=== PATIENT | female | born 1960 | race Caucasian/White ===

== ENCOUNTER 2020-06-11 20:42 | Emergency (ER) | payer OTHER ==
--- NOTE | 2020-06-11 21:06 | EDPHYS ---
Physician Documentation [facility] Name: Nemesio Merino Age: 60 yrs Sex: Female : 1960 Arrival Date: 06/11/2020 Time: 20:42 Bed 27 Private MD: ED Physician Paul Bean HPI: 06/11 20:58 This 60 yrs old Female presents to ER via Ambulatory with complaints of Eye rn Swelling - Forehead. 20:58 The patient is experiencing. rn 20:58 The patient presents with cellulitis of the left eye, the patient presents with a rn swollen area of the left eye. Description: erythematous, swollen, warm. Onset: The symptoms/episode began/occurred 1 week(s) ago. Possible cause(s): unknown. Associated signs and symptoms: Pertinent positives: erythema, swelling. Modifying factors: the symptoms are alleviated by nothing, the symptoms are aggravated by touching. Severity of symptoms: At their worst the symptoms were moderate, in the emergency department the symptoms are unchanged. The patient has not experienced similar symptoms in the past. Reports 1 week of left periorbital swelling and pain, has cats but not sure if scratched, seen at [facility] 1 week ago, given amoxicillin and not helping. No pain to eyeball itself or painful EOM. + clear drainage from left eye. No fever. Reports swelling and pain to forehead as well. . Historical: - Allergies: 20:49 No Known Allergies; sg - Immunization history:: Adult Immunizations up to date. - Social history:: Smoking status: Patient reports the use of cigarette tobacco products. - Family history:: not pertinent. - Hospitalizations: : No recent hospitalization is reported. ROS: 20:58 Constitutional: Negative for fever, chills, and weight loss, Eyes: + swelling and pain rn around left eye ENT: Negative for injury, pain, and discharge, Neck: Negative for injury, pain, and swelling, Cardiovascular: Negative for chest pain, palpitations, and edema, Respiratory: Negative for shortness of breath, cough, wheezing, and pleuritic chest pain, Abdomen/GI: Negative for abdominal pain, nausea, vomiting, diarrhea, and constipation, MS/Extremity: Negative for injury and deformity, Skin: + redness and pain around left eye Neuro: Negative for headache, weakness, numbness, tingling, and seizure. Exam: 20:58 Constitutional: This is a well developed, well nourished patient who is awake, alert, rn and in no acute distress. Head/Face: Normocephalic, atraumatic. Eyes: Pupils equal round and reactive to light, extra-ocular motions intact. No pain with EOM. + left periorbital edema and redness, no purulence, no hyphema, no pus in anterior chamber. No fluctuance. Vital Signs: 20:49 BP 132 / 77; Pulse 77; Resp 16; Pulse Ox 96% on R/A; Pain 0/10; sg 21:22 BP 147 / 67; Pulse 55; Resp 16; Temp 98.8(O); Pulse Ox 100% on R/A; jb4 MDM: 20:51 Patient medically screened. rn 20:58 Differential diagnosis: cellulitis. Data reviewed: vital signs, nurses notes, and as a rn result, I will discharge patient. Counseling: I had a detailed discussion with the patient and/or guardian regarding: the historical points, exam findings, and any diagnostic results supporting the discharge/admit diagnosis, the need for outpatient follow up, to return to the emergency department if symptoms worsen or persist or if there are any questions or concerns that arise at home. Special discussion: I discussed with the patient/guardian in detail that at this point there is no indication for admission to the hospital. It is understood, however, that if the symptoms persist or worsen the patient needs to return immediately for re-evaluation. Administered Medications: 21:15 Drug: Bactrim (160 mg-800 mg (DS) 1 tablet Route: PO; jb4 21:39 Follow up: Response: No adverse reaction jb4 21:19 Drug: Clindamycin 600 mg Route: IM; Site: left gluteus; jb4 21:39 Follow up: Response: No adverse reaction jb4 21:19 Drug: Decadron 10 mg Route: IM; Site: left deltoid; jb4 21:39 Follow up: Response: No adverse reaction jb4 Disposition: 06/11/20 21:05 Discharged to Home. Impression: Periorbital cellulitis. - Condition is Stable. - Discharge Instructions: Preseptal Cellulitis, Adult. - Prescriptions for Clindamycin HCl 300 mg Oral Capsule - take 1 capsule by ORAL route every 6 hours for 10 days; 40 capsule. Bactrim DS 800- 160 mg Oral Tablet - take 1 tablet by ORAL route every 12 hours for 10 days; 20 tablet. - Medication Reconciliation Form, Thank You Letter, Antibiotic Education, Prescription Opioid Use form. - Follow up: Private Physician; When: As needed; Reason: Recheck today's complaints, Re-evaluation by your physician. - Problem is an ongoing problem. - Symptoms are unchanged. Signatures: Jd Chavez RN RN Paul Bean MD MD rn Bryson, James, RN RN jb4 Corrections: (The following items were deleted from the chart) 21:39 21:05 06/11/2020 21:05 Discharged to Home. Impression: Periorbital cellulitis. jb4 Condition is Stable. Forms are Medication Reconciliation Form, Thank You Letter, Antibiotic Education, Prescription Opioid Use. Follow up: Private Physician; When: As needed; Reason: Recheck today's complaints, Re-evaluation by your physician. Problem is an ongoing problem. Symptoms are unchanged. rn
--- NOTE | 2020-06-11 21:06 | ER ---
Nurse's Notes [facility] Name: Nemesio Merino Age: 60 yrs Sex: Female : 1960 Arrival Date: 06/11/2020 Time: 20:42 Bed 27 Private MD: Diagnosis: Periorbital cellulitis Presentation: 06/11 20:47 Chief complaint: Patient states: Swelling to forehead and left side of face, eye sg swelling. pt reports swelling just happened, no injury/trauma, pt denies any changes to detergent/soaps, no new medications. Coronavirus screen: Client denies travel out of the [place] in the last 14 days. At this time, the client does not indicate any symptoms associated with coronavirus-19. The client reports previous COVID testing was negative. Ebola Screen: Patient negative for fever greater than or equal to 101.5 degrees Fahrenheit, and additional compatible Ebola Virus Disease symptoms Patient denies exposure to infectious person. Patient denies travel to an Ebola-affected area in the 21 days before illness onset. No symptoms or risks identified at this time. Initial Sepsis Screen: Does the patient meet any 2 criteria? No. Patient's initial sepsis screen is negative. Does the patient have a suspected source of infection? No. Patient's initial sepsis screen is negative. Risk Assessment: Do you want to hurt yourself or someone else? Patient reports no desire to harm self or others. Onset of symptoms was June 10, 2020. Care prior to arrival: None. Transition of care: patient was not received from another setting of care. 20:47 Method Of Arrival: Ambulatory sg 20:47 Acuity: JOHN 3 sg Historical: - Allergies: 20:49 No Known Allergies; sg - Immunization history:: Adult Immunizations up to date. - Social history:: Smoking status: Patient reports the use of cigarette tobacco products. - Family history:: not pertinent. - Hospitalizations: : No recent hospitalization is reported. Screenin:22 Abuse screen: Denies threats or abuse. Nutritional screening: No deficits noted. jb4 Tuberculosis screening: No symptoms or risk factors identified. Fall Risk None identified. Assessment: 21:22 Reassessment: PT on 15 minute shot time. General: Appears in no apparent distress. jb4 uncomfortable. Pain: Complains of pain in left eye Pain does not radiate. Pain currently is 6 out of 10 on a pain scale. Quality of pain is described as throbbing. Neuro: Level of Consciousness is awake, alert, obeys commands, Oriented to person, place, time, situation. Cardiovascular: Patient's skin is warm and dry. Respiratory: Airway is patent Respiratory effort is even, unlabored, Respiratory pattern is regular, symmetrical. GI: No signs and/or symptoms were reported involving the gastrointestinal system. : No signs and/or symptoms were reported regarding the genitourinary system. EENT: No signs and/or symptoms were reported regarding the EENT system. Derm: Skin is intact, Skin is pink, warm \T\ dry. Musculoskeletal: Circulation, motion, and sensation intact. Range of motion:. Vital Signs: 20:49 BP 132 / 77; Pulse 77; Resp 16; Pulse Ox 96% on R/A; Pain 0/10; sg 21:22 BP 147 / 67; Pulse 55; Resp 16; Temp 98.8(O); Pulse Ox 100% on R/A; jb4 ED Course: 20:42 Patient arrived in ED. cl3 20:48 Triage completed. sg 20:48 Arm band placed on. sg 20:51 Earnest Maguire, RN is Primary Nurse. jb4 20:51 Paul Bean MD is Attending Physician. rn 21:22 Patient has correct armband on for positive identification. Bed in low position. Call jb4 light in reach. Side rails up X 1. Pulse ox on. NIBP on. 21:22 No provider procedures requiring assistance completed. Patient did not have IV access jb4 during this emergency room visit. Administered Medications: 21:15 Drug: Bactrim (160 mg-800 mg (DS) 1 tablet Route: PO; jb4 21:39 Follow up: Response: No adverse reaction jb4 21:19 Drug: Clindamycin 600 mg Route: IM; Site: left gluteus; jb4 21:39 Follow up: Response: No adverse reaction jb4 21:19 Drug: Decadron 10 mg Route: IM; Site: left deltoid; jb4 21:39 Follow up: Response: No adverse reaction jb4 Outcome: 21:05 Discharge ordered by . rn 21:38 Discharged to home jb4 21:39 Discharged to home ambulatory. jb4 21:39 Condition: stable 21:39 Discharge instructions given to patient, Instructed on discharge instructions, follow up and referral plans. medication usage, Demonstrated understanding of instructions, follow-up care, medications, Prescriptions given X 2. 21:39 Patient left the ED. jb4 Signatures: Jd Chavez RN RN sg Nieto, Roman, MD MD rn Bryson, James, RN RN jb4 Roro Kramer cl3
[2020-06-11] MEDS ORDERED: dexAMETHasone 10 MG/ML VIAL ONE (21:24)
[2020-06-11] MEDS ORDERED: CLINDAMYCIN IV 150 MG/ML (4 mL) VIAL ONE (21:24)
[2020-06-11] MEDS ORDERED: SMZ./TMP. 800/160 MG TABLET ONE (21:24)
[2020-06-16 22:04] VITALS: BP 147/67; TEMP 98.8; O2SAT 100
== END 2020-06-11 21:39 | disposition home or self-care (01) ==
LOC: ER 20:42
DX: L03.213 Periorbital cellulitis (principal); Z72.0 Tobacco use
CPT/HCPCS: 96372; 99283; J1100; S0077

== ENCOUNTER 2020-07-03 21:12 | Emergency (ER) | payer OTHER ==
[2020-07-03 22:09] LABS: Absolute Lymphocytes (CBC) 2.2 K/uL (0.7-4.9); Basophils % 0.7 % (0-1.3); Hematocrit 39.9 % (36.0-45.0); MPV 9.4 fL (7.6-11.3); RBC Red Blood Cell Count 4.11 M/uL (3.86-4.86)
[2020-07-03] MEDS ORDERED: NA CHLORIDE 0.9% 1,000 ML ONE (22:14)
[2020-07-03] MEDS ORDERED: MORPHINE 4 MG/ML SYR ONE (22:14)
[2020-07-03] MEDS ORDERED: ONDANSETRON 4 MG/2 ML VIAL ONE (22:14)
[2020-07-03 22:26] LABS: Protime INR 1.06
[2020-07-03 22:29] LABS: ALT/SGPT 70 U/L (12-78); AST/SGOT 67 U/L (15-37); Albumin 3.6 g/dL (3.4-5.0); Alkaline Phosphatase 71 U/L (45-117); BUN Blood Urea Nitrogen 7 mg/dL (7-18); Bicarbonate 26 mmol/L (21-32); Bilirubin Direct < 0.1 mg/dL (0-0.2); Bilirubin Total 0.3 mg/dL (0.2-1.0); Glucose Level 87 mg/dL (74-106); Magnesium 2.2 mg/dL (1.8-2.4); NT PRO-BNP 527 pg/mL (<125); Potassium 3.2 mmol/L (3.5-5.1); Protein, Total 8.2 g/dL (6.4-8.2); Sodium Level 141 mmol/L (136-145); Troponin (Emerg Dept Use Only) < 0.02 ng/mL (0.0-0.045)
[2020-07-03] MEDS ORDERED: POTASSIUM CL SA 10 MEQ TAB PO ONE (22:55)
[2020-07-03 23:24] LABS: SARS-COV-2 RT PCR NEGATIVE (NEGATIVE)
[2020-07-04] MEDS ORDERED: ACYCLOVIR 400 MG TABLET ONE (01:24)
--- NOTE | 2020-07-04 01:25 | ER ---
Nurse's Notes [facility] Name: Nemesio Merino Age: 60 yrs Sex: Female : 1960 Arrival Date: 07/03/2020 Time: 21:17 Bed 4 Private MD: Yoni Glass Diagnosis: Chest pain. Periorbital swelling left eye. Possible herpes zoster Presentation: 07/03 21:30 Chief complaint: Patient states: I have this right side chest pain going to my back rr5 when I breath it gets worse started 6pm tonight. 21:30 Coronavirus screen: Client denies travel out of the [place] in the last 14 days. cough rr5 unrelated to allergies, difficulty breathing, shortness of breath, Client presents with at least one sign or symptom that may indicate coronavirus-19. Standard/surgical mask placed on the client. Provider contacted for isolation considerations. The client reports previous COVID testing was negative. Date of collection: June 11, 2020. Ebola Screen: Patient negative for fever greater than or equal to 101.5 degrees Fahrenheit, and additional compatible Ebola Virus Disease symptoms Patient denies exposure to infectious person. Patient denies travel to an Ebola-affected area in the 21 days before illness onset. Initial Sepsis Screen: Does the patient meet any 2 criteria? No. Patient's initial sepsis screen is negative. Does the patient have a suspected source of infection? Yes: Productive cough/pneumonia. Risk Assessment: Do you want to hurt yourself or someone else? Patient reports no desire to harm self or others. Onset of symptoms was July 03, 2020 at 18:00. 21:30 Method Of Arrival: Ambulatory rr5 21:30 Acuity: JOHN 3 rr5 Historical: - Allergies: 21:44 No Known Allergies; rr5 - Home Meds: 21:44 sertraline oral oral [Active]; levothyroxine oral [Active]; Omeprazole Oral [Active]; rr5 Metoprolol Tartrate Oral [Active]; - PMHx: 21:44 Hypothyroidism; Hypertension; Hepatitis; rr5 - PSHx: 21:44 ; Hysterectomy; rr5 - Immunization history:: Adult Immunizations up to date. - Social history:: Smoking status: Patient reports the use of cigarette tobacco products, smokes one-half pack cigarettes per day, Patient uses alcohol, occasionally. Patient/guardian denies using street drugs. Screenin:01 Abuse screen: Denies threats or abuse. Denies injuries from another. Nutritional mg2 screening: No deficits noted. Tuberculosis screening: No symptoms or risk factors identified. Fall Risk IV access (20 points). Assessment: 22:01 General: Appears in no apparent distress. comfortable, Behavior is calm, cooperative. mg2 Pain: Complains of pain in left eye and chest. Neuro: Level of Consciousness is awake, alert, obeys commands, Oriented to person, place, time, situation. Cardiovascular: Capillary refill < 3 seconds Patient's skin is warm and dry. Respiratory: Airway is patent Respiratory effort is even, unlabored, Respiratory pattern is regular, symmetrical. GI: No signs and/or symptoms were reported involving the gastrointestinal system. : No signs and/or symptoms were reported regarding the genitourinary system. EENT: Eyes left eye swelling. 22:01 Pain: Complains of pain in chest and left eye Pain radiates to back Pain currently is 5 rr5 out of 10 on a pain scale. Quality of pain is described as aching, Pain began gradually, Is intermittent. 22:01 Derm: Skin is intact, is healthy with good turgor, Skin temperature is warm. rr5 Musculoskeletal: Capillary refill < 3 seconds. 23:17 Reassessment: patient sent to ct scan via stretcher. mg2 07/04 00:30 Reassessment: Patient appears in no apparent distress at this time. Patient is alert, rr5 oriented x 3, equal unlabored respirations, skin warm/dry/pink. awaiting for results Patient states feeling better. Patient states symptoms have improved. 01:35 Reassessment: Patient appears in no apparent distress at this time. Patient is alert, rr5 oriented x 3, equal unlabored respirations, skin warm/dry/pink. discharge instruction given and explained without complaints made Patient states symptoms have improved. Vital Signs: 07/03 21:30 BP 159 / 108; Pulse 77; Resp 16; Temp 98.1; Pulse Ox 99% ; Weight 81.65 kg; Height 5 rr5 ft. 5 in. (165.10 cm); Pain 5/10; 22:16 BP 168 / 86; Pulse 70; Resp 19; Pulse Ox 99% ; rr5 23:02 BP 167 / 88; Pulse 64; Resp 18; Pulse Ox 99% on R/A; mg2 07/04 00:27 BP 149 / 81; Pulse 64; Resp 19; Pulse Ox 100% ; rr5 01:39 BP 155 / 75; Pulse 69; Resp 16; Pulse Ox 98% ; Pain 0/10; rr5 07/03 21:30 Body Mass Index 29.95 (81.65 kg, 165.10 cm) rr5 ED Course: 07/03 21:17 Patient arrived in ED. es 21:18 Yoni Glass MD is Private Physician. es 21:20 Kodak Gonsalez, PERNELL is Primary Nurse. rr5 21:27 Alonso Aldridge MD is Attending Physician. pkl 21:30 Arm band placed on right wrist. EKG completed in triage. Results shown to MD. rr5 21:41 Triage completed. rr5 22:00 Patient maintains SpO2 saturation greater than 95% on room air. rr5 22:01 Patient has correct armband on for positive identification. quality assurance monitor final on. Pulse mg2 ox on. NIBP on. Door closed. Warm blanket given. 22:01 No provider procedures requiring assistance completed. Inserted saline lock: 20 gauge mg2 in right antecubital area, using aseptic technique. Blood collected. 22:16 COVID swab sent to lab. Flu and/or RSV swab sent to lab. rr5 22:21 XRAY Chest (1 view) In Process Unspecified. EDMS 23:33 CT Facial Bones W/O Con In Process Unspecified. EDMS 23:36 CT Chest W/ Con In Process Unspecified. EDMS 07/04 01:39 IV discontinued, intact, bleeding controlled, No redness/swelling at site. Pressure rr5 dressing applied. Administered Medications: 07/03 22:00 Drug: NS 0.9% 1000 ml Route: IV; Rate: 125 ml/hr; Site: right antecubital; mg2 07/04 01:40 Follow up: Response: No adverse reaction; IV Status: Order to discontinue infusion; IV rr5 Intake: 500ml 07/03 22:00 Drug: morphine 4 mg Route: IVP; Site: right antecubital; mg2 23:03 Follow up: Response: No adverse reaction mg2 22:00 Drug: Zofran (Ondansetron) 4 mg Route: IVP; Site: right antecubital; mg2 23:03 Follow up: Response: No adverse reaction mg2 22:42 Drug: K-Dur 40 mEq Route: PO; mg2 23:03 Follow up: Response: No adverse reaction mg2 07/04 01:14 Drug: Acyclovir 800 mg Route: PO; mg2 01:34 Follow up: Response: No adverse reaction; Medication administered at discharge. mg2 Intake: 01:40 IV: 500ml; Total: 500ml. rr5 Outcome: 01:24 Discharge ordered by . pkl 01:39 Discharged to home ambulatory. rr5 01:39 Condition: stable 01:39 Discharge instructions given to patient, Instructed on discharge instructions, follow up and referral plans. medication usage, Demonstrated understanding of instructions, follow-up care, medications, Prescriptions given X 4. 01:40 Patient left the ED. rr5 Signatures: Dispatcher [employer] EDAlonso Sandhu MD MD pkl Salyer, Edna es Gardose, Michele, RN RN mg2 Kodak Gonsalez RN RN rr5 Corrections: (The following items were deleted from the chart) 07/03 22:03 21:30 BP 159 / 108; Pulse 77bpm; Resp 16bpm; Pulse Ox 99%; Temp 98.1F; 48.99 kg; Height rr5 5 ft. 5 in.; BMI: 17.9; Pain 5/10; rr5
--- NOTE | 2020-07-04 01:26 | EDPHYS ---
Physician Documentation [facility] Name: Nemesio Merino Age: 60 yrs Sex: Female : 1960 Arrival Date: 07/03/2020 Time: 21:17 Bed 4 Private MD: Yoni Glass ED Physician Alonso Aldridge HPI: 07/04 01:09 This 60 yrs old Female presents to ER via Ambulatory with complaints of Chest pkl Pain, Facial Swelling. 01:09 The patient or guardian reports chest pain that is located primarily in the right side pkl of chest. Onset: today, 4 hour(s) ago. The pain radiates to back. Associated signs and symptoms: The patient has no apparent associated signs or symptoms. The chest pain is described as dull. Patient was seen in this ER about 3 weeks ago for swelling around her left eye. Diagnosed with periorbital cellulitis and given Clindamycin and Bactrim DS. Patient said pain and swelling left eye not getting better. Historical: - Allergies: 07/03 21:44 No Known Allergies; rr5 - Home Meds: 21:44 sertraline oral oral [Active]; levothyroxine oral [Active]; Omeprazole Oral [Active]; rr5 Metoprolol Tartrate Oral [Active]; - PMHx: 21:44 Hypothyroidism; Hypertension; Hepatitis; rr5 - PSHx: 21:44 ; Hysterectomy; rr5 - Immunization history:: Adult Immunizations up to date. - Social history:: Smoking status: Patient reports the use of cigarette tobacco products, smokes one-half pack cigarettes per day, Patient uses alcohol, occasionally. Patient/guardian denies using street drugs. ROS: 07/04 01:09 ENT: Negative for injury, pain, and discharge. pkl Eyes: Positive for swelling, of the left eye. Neck: Negative for acute changes. Cardiovascular: Positive for chest pain, of the right side of chest. Respiratory: Negative for cough, shortness of breath. Abdomen/GI: Negative for abdominal pain, nausea, vomiting, and diarrhea. Back: Negative for acute changes. : Negative for urinary symptoms. MS/extremity: Negative for acute changes. Skin: Negative for rash. Neuro: Negative for altered mental status, loss of consciousness. Exam: :09 ENT: Nares patent. No nasal discharge, no septal abnormalities noted. Tympanic pkl membranes are normal and external auditory canals are clear. Oropharynx with no redness, swelling, or masses, exudates, or evidence of obstruction, uvula midline. Mucous membranes moist. 01:09 Eyes: Periorbital structures: swelling, that is mild, on the left eye. 01:09 Neck: Exam negative for nuchal rigidity. 01:09 Chest/axilla: Exam negative for acute changes. 01:09 Cardiovascular: Rate: normal, Rhythm: regular. 01:09 Respiratory: the patient does not display signs of respiratory distress, Respirations: normal, Breath sounds: are clear throughout. 01:09 Abdomen/GI: Bowel sounds: normal, Palpation: abdomen is soft and non-tender, in all quadrants. 01:09 Back: Exam negative for acute changes. 01:09 : Exam negative for acute changes. 01:09 Musculoskeletal/extremity: Exam is negative for acute changes. 01:09 Skin: Exam negative for rash. 01:09 Neuro: Orientation: is normal, Mentation: is normal, Cranial nerves: grossly normal, Motor: is normal. Vital Signs: 07/03 21:30 BP 159 / 108; Pulse 77; Resp 16; Temp 98.1; Pulse Ox 99% ; Weight 81.65 kg; Height 5 rr5 ft. 5 in. (165.10 cm); Pain 5/10; 22:16 BP 168 / 86; Pulse 70; Resp 19; Pulse Ox 99% ; rr5 23:02 BP 167 / 88; Pulse 64; Resp 18; Pulse Ox 99% on R/A; mg2 07/04 00:27 BP 149 / 81; Pulse 64; Resp 19; Pulse Ox 100% ; rr5 01:39 BP 155 / 75; Pulse 69; Resp 16; Pulse Ox 98% ; Pain 0/10; rr5 07/03 21:30 Body Mass Index 29.95 (81.65 kg, 165.10 cm) rr5 MDM: 07/03 21:27 Patient medically screened. pkl 07/04 01:20 Data reviewed: vital signs, nurses notes, lab test result(s), EKG, radiologic studies, pkl CT scan, plain films. ED course: Patient feeling better. Advised to follow up with Director Marketing Analytics ( Dr. Shivam Davis or Dr. Carrillo ) in 2 to 3 days. Patient understood instruction. 01:35 Patient medically screened. pkl 07/03 21:50 Order name: Basic Metabolic Panel; Complete Time: 22:34 pkl 07/03 21:50 Order name: CBC with Diff; Complete Time: 22:34 pkl 07/03 21:50 Order name: LFT's; Complete Time: 22:34 pkl 07/03 21:50 Order name: Magnesium; Complete Time: 22:34 pkl 07/03 21:50 Order name: NT PRO-BNP; Complete Time: 22:34 pkl 07/03 21:50 Order name: PT-INR; Complete Time: 22:34 pkl 07/03 21:50 Order name: Troponin (emerg Dept Use Only); Complete Time: 22:34 pkl 07/03 21:50 Order name: XRAY Chest (1 view) pkl 07/03 21:50 Order name: D-Dimer; Complete Time: 22:34 pkl 07/03 22:44 Order name: CT Facial Bones W/O Con pkl 07/03 22:44 Order name: CT Chest W/ Con pkl 07/03 23:24 Order name: COVID-19/FLU A+B; Complete Time: 01:34 EDMS 07/03 21:50 Order name: EKG; Complete Time: 21:51 pkl 07/03 21:50 Order name: Cardiac monitoring; Complete Time: 22:00 pkl 07/03 21:50 Order name: EKG - Nurse/Tech; Complete Time: 22:00 pkl 07/03 21:50 Order name: IV Saline Lock; Complete Time: 22:01 pkl 07/03 21:50 Order name: Labs collected and sent; Complete Time: 22:01 pkl 07/03 21:50 Order name: O2 Per Protocol; Complete Time: 22:01 pkl 07/03 21:50 Order name: O2 Sat Monitoring; Complete Time: 22:01 pkl Administered Medications: 07/03 22:00 Drug: NS 0.9% 1000 ml Route: IV; Rate: 125 ml/hr; Site: right antecubital; mg2 07/04 01:40 Follow up: Response: No adverse reaction; IV Status: Order to discontinue infusion; IV rr5 Intake: 500ml 07/03 22:00 Drug: morphine 4 mg Route: IVP; Site: right antecubital; mg2 23:03 Follow up: Response: No adverse reaction mg2 22:00 Drug: Zofran (Ondansetron) 4 mg Route: IVP; Site: right antecubital; mg2 23:03 Follow up: Response: No adverse reaction mg2 22:42 Drug: K-Dur 40 mEq Route: PO; mg2 23:03 Follow up: Response: No adverse reaction mg2 07/04 01:14 Drug: Acyclovir 800 mg Route: PO; mg2 01:34 Follow up: Response: No adverse reaction; Medication administered at discharge. mg2 Disposition: 07/04/20 01:24 Discharged to Home. Impression: Chest pain. Periorbital swelling left eye. Possible herpes zoster. - Condition is Stable. - Prescriptions for Ultram 50 mg Oral Tablet - take 1 tablet by ORAL route every 8 hours As needed; 15 tablet. Acyclovir 800 mg Oral Tablet - take 1 tablet by ORAL route 4 times per day for 10 days; 40 tablet. Metoprolol Tartrate 50 mg Oral Tablet - take 1 tablet by ORAL route 2 times per day take with meal; 60 tablet. omeprazole 40 mg Oral capsule,delayed release(DR/EC) - take 1 capsule by ORAL route once daily before a meal; 30 capsule. - Medication Reconciliation Form, Thank You Letter, Antibiotic Education, Prescription Opioid Use form. - Follow up: Private Physician; When: 2 - 3 days; Reason: Re-evaluation by your physician. - Problem is new. - Symptoms have improved. Signatures: Dispatcher [employer] EDMN Alonso Aldridge MD MD pkl Davon Johnson RN RN mg2 Kodak Gonsalez RN RN rr5 Corrections: (The following items were deleted from the chart) 07/03 22:27 21:51 Influenza Screen (A \T\ B)+BA.LAB.BRZ ordered. EDMN EDMS 22:27 21:51 CORONAVIRUS+MR.LAB.BRZ ordered. EDMN EDMS 07/04 01:35 01:24 07/04/2020 01:24 Discharged to Home. Impression: Chest pain. Periorbital swelling pkl left eye. Condition is Stable. Forms are Medication Reconciliation Form, Thank You Letter, Antibiotic Education, Prescription Opioid Use. Follow up: Private Physician; When: 2 - 3 days; Reason: Re-evaluation by your physician. Problem is new. Symptoms have improved. pkl 01:40 01:35 07/04/2020 01:24 Discharged to Home. Impression: Chest pain. Periorbital swelling rr5 left eye. Possible herpes zoster. Condition is Stable. Prescriptions for Ultram 50 mg Oral Tablet - take 1 tablet by ORAL route every 8 hours As needed; 15 tablet, Acyclovir 800 mg Oral Tablet - take 1 tablet by ORAL route 4 times per day for 10 days; 40 tablet, Metoprolol Tartrate 50 mg Oral Tablet - take 1 tablet by ORAL route 2 times per day take with meal; 860 tablet, omeprazole 40 mg Oral capsule,delayed release(DR/EC) - take 1 capsule by ORAL route once daily before a meal; 30 capsule. and Forms are Medication Reconciliation Form, Thank You Letter, Antibiotic Education, Prescription Opioid Use. Follow up: Private Physician; When: 2 - 3 days; Reason: Re-evaluation by your physician. Problem is new. Symptoms have improved. pkl
[2020-07-04 01:44] VITALS: TEMP 98.1
[2020-07-04 01:49] VITALS: BP 155/75; O2SAT 98
--- NOTE | 2020-07-04 08:58 | RAD REPORT ---
EXAM DESCRIPTION: Verenice Single View07/03/2020 10:23 pm CLINICAL HISTORY: Chest pain COMPARISON: none FINDINGS: The lungs appear clear of acute infiltrate. The heart is mildly enlarged IMPRESSION: No acute abnormalities displayed
--- NOTE | 2020-07-05 13:43 | RAD REPORT ---
EXAM DESCRIPTION: CT - Facial Bones W/ Mpr - 07/04/2020 6:[address] Maxillofacial Without Intravenous Contrast CLINICAL HISTORY: The patient is 60 years old and is Female; periorbital swelling left eye TECHNIQUE: Axial computed tomography images of the face without intravenous contrast. Sagittal and coronal reformatted images were created and reviewed. This CT exam was performed using one or more of the following dose reduction techniques: automated exposure control, adjustment of the mA and/o r kV according to patient size, and/or use of iterative reconstruction technique. COMPARISON: No relevant prior studies available. FINDINGS: BONES/JOINTS: The orbital floors and geiger are intact. The zygomatic arches and pteryg oid plates are intact. The visualized maxilla and mandible are intact. SOFT TISSUES: Minimal left frontal/periorbital soft tissue swelling is present. ORBITS: The globes, extraocular muscles, and optic nerve complexes are within normal limits. SINUSES: The visualized paranasal sinuses are clear. No air-fluid levels. DENTAL: The patient is edentulous. NASAL CAVITY/SEPTUM: The nasal bones are intact. IMPRESSION: Minimal left frontal/periorbital soft tissue swelling. No evidence of fracture. Electronically signed by: Barbi Abraham MD 07/03/2020 11:58 PM INTELLIGENCE CHIEF Due to temporary technical issues with the PACS/Fluency reporting system, reports are being signed by the in house radiologists without review as a courtesy to insure prompt reporting. The interpreting radiologist is fully responsible for the content of the report.
--- NOTE | 2020-07-05 13:45 | RAD REPORT ---
EXAM DESCRIPTION: CT - Thorax W/ Con - 07/04/2020 6:44 am CLINICAL HISTORY: The patient is 60 years old and is Female; PAIN TECHNIQUE: Axial computed tomography images of the chest with intravenous contrast. Sagittal and c oronal reformatted images were created and reviewed. This CT exam was performed using one or more o f the following dose reduction techniques: automated exposure control, adjustment of the mA and/or kV according to patient size, and/or use of iterative reconstruction technique. COMPARISON: No relevant prior studies available. FINDINGS: LUNGS: Minimal dependent densities in the lung bases are present. PLEURAL SPACE: Unremarkable. No pneumothorax. No significant effusion. HEART: No cardiomegaly. No pericardial effusion. BONES/JOINTS: No acute fracture. SOFT TISSUES: A well-rounded 4.0 x 3.7 cm mainly fat density lesion with minimal soft tissue comp onents within the right breast is present. VASCULATURE: Unremarkable. No thoracic aortic aneurysm. The pulmonary arteries opacify normally . No evidence of pulmonary thromboembolism. LYMPH NODES: Unremarkable. No enlarged lymph nodes. IMPRESSION: 1. Minimal dependent atelectasis. 2. Heterogeneous mainly fat density lesion within the soft tissues of the right breast. Findings co uld be secondary to an area of fat necrosis. However, recommend further evaluation with appropriate m ammographic follow-up to include dedicated mammogram and breast ultrasound. This can be done on a non emergent basis. Electronically signed by: Barbi Abraham MD 07/04/2020 12:03 AM TANK SHOP SUPERVISOR Due to temporary technical issues with the PACS/Fluency reporting system, reports are being signed by the in house radiologists without review as a courtesy to insure prompt reporting. The interpreting radiologist is fully responsible for the content of the report.
--- NOTE | 2020-07-06 10:32 | EKG ---
Test Date: 2020-07-03 Test Time: 21:28:32 Care Program Director: RR MEASUREMENT RESULTS: Intervals: Rate: 80 NH: 152 QRSD: 74 QT: 360 QTc: 415 [place]: P: 51 NH: 152 QRS: 7 T: 110 INTERPRETIVE STATEMENTS: Normal sinus rhythm ST & T wave abnormality, consider lateral ischemia Abnormal ECG Compared to ECG 12/31/2009 13:41:08 ST (T wave) deviation now present Possible ischemia now present Sinus bradycardia no longer present Electronically Signed On 07-06-20 10:28:07 FILTER TIP INSPECTOR by Antelmo Perez
== END 2020-07-04 01:40 | disposition home or self-care (01) ==
LOC: ER 21:12
DX: R22.9 Localized swelling, mass and lump, unspecified (principal); F17.210 Nicotine dependence, cigarettes, uncomplicated; I10 Essential (primary) hypertension; E03.9 Hypothyroidism, unspecified; Z20.828 Contact with and (suspected) exposure to other viral communicable diseases
CPT/HCPCS: 96361; 93005; 85025; 80048; 36415; 83735; 85610; 85379; 80076; 84484; 83880; 0240U; 71260; 70486; 76377; 71045; 96375; 96374; 99285; J7030; J2405